=== PATIENT | male | born 2000 | race Hispanic/Latino ===

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

== ENCOUNTER 2022-02-23 09:43 | Outpatient (CLI) | payer OTHER | END 2022-02-23 19:27 | disposition home or self-care (01) | LOC: RAD 09:43 | PROVIDERS: ATTEND Nurse Practitioner | DX: M79.641 Pain in right hand (principal) ==